=== PATIENT | female | born 1980 | race Caucasian/White ===

== ENCOUNTER → 2019-06-23 10:54 | Outpatient (BNVA) | payer MEDICAID, SELFPAY | PROVIDERS: Visit Provider Family Medicine | DX: Z13.1 Encounter for screening for diabetes mellitus (principal); Z13.220 Encounter for screening for lipoid disorders; Z13.6 Encounter for screening for cardiovascular disorders; Z12.4 Encounter for screening for malignant neoplasm of cervix | CPT/HCPCS: 80048; 80061; 88175 ==

== ENCOUNTER → 2020-09-14 10:22 | Outpatient (BNVA) | payer MEDICAID, SELFPAY | PROVIDERS: Visit Provider Registered Nurse | DX: F25.0 Schizoaffective disorder, bipolar type (principal); F43.12 Post-traumatic stress disorder, chronic | CPT/HCPCS: 36415; 80061; 83036 ==

== ENCOUNTER → 2021-09-06 10:18 | Outpatient (BNVA) | payer MEDICAID, SELFPAY | PROVIDERS: Visit Provider Registered Nurse | DX: Z79.899 Other long term (current) drug therapy (principal) | CPT/HCPCS: 80053; 80061; 83036; 84443; 85025 ==

== ENCOUNTER → 2022-09-12 08:59 | Outpatient (BNVA) | payer MEDICAID, SELFPAY | PROVIDERS: Visit Provider Registered Nurse | DX: Z79.899 Other long term (current) drug therapy (principal) | CPT/HCPCS: 80053; 80061; 83036; 83721; 85025 ==

== ENCOUNTER → 2024-07-12 11:44 | Outpatient (BNVA) | payer OTHER, SELFPAY ==
[2023-05-13 16:13] VITALS: BP 119/81; BMI 34.8
== END ==
PROVIDERS: Visit Provider Psychiatry & Neurology Psychiatry
DX: Z79.899 Other long term (current) drug therapy (principal); F25.0 Schizoaffective disorder, bipolar type; F43.12 Post-traumatic stress disorder, chronic
CPT/HCPCS: 80053; 80061; 83036; 84443; 85025

== ENCOUNTER → 2025-01-14 10:50 | Outpatient (BNVA) | payer MEDICAID, SELFPAY ==
[2024-07-14 11:30] VITALS: BP 111/71; BMI 32.8
== END ==
PROVIDERS: Visit Provider Nurse Practitioner
DX: M25.572 Pain in left ankle and joints of left foot (principal); M25.472 Effusion, left ankle
CPT/HCPCS: 73610

== ENCOUNTER → 2025-02-01 10:07 | Outpatient (BNVA) | payer MEDICAID, SELFPAY ==
[2024-07-14 11:30] VITALS: BP 111/71; BMI 32.8
== END ==
PROVIDERS: Family Provider Nurse Practitioner; PCP Nurse Practitioner; Visit Provider Nurse Practitioner
DX: Z13.220 Encounter for screening for lipoid disorders (principal); N32.81 Overactive bladder
CPT/HCPCS: 80053; 80061; 84443; 85025

== ENCOUNTER → 2025-02-16 09:12 | Outpatient (BNVA) | payer MEDICAID, SELFPAY ==
[2024-07-14 11:30] VITALS: BP 111/71; BMI 32.8
== END ==
PROVIDERS: Family Provider Nurse Practitioner; PCP Nurse Practitioner; Visit Provider Nurse Practitioner
DX: R79.89 Other specified abnormal findings of blood chemistry (principal)
CPT/HCPCS: 84443